=== PATIENT | female | born 1990 ===

== ENCOUNTER 2018-01-15 18:09 | Emergency (ER) | payer MEDICAID ==
[2018-01-15 18:23] VITALS: BMI 44.9
[2018-01-15 18:26] VITALS: BP 118/69; PULSE 89; RESP 18; TEMP 98.6; O2SAT 99
[2018-01-15 19:25] LABS: BASO % 0.8 % (0.0-2.0); EOS # 0.1 K/uL (0.0-0.7); EOS % 1.1 % (0.0-4.0); HEMOGLOBIN 11.9 g/dL (11.0-16.0); LYMPH # 1.5 K/uL (1.0-4.3); LYMPH % 26.3 % (20.0-40.0); MEAN CELL VOLUME 82.4 fL (81.0-99.0); MEAN CORPUSCULAR HEMOGLOBIN 27.5 pg (27.0-31.0); MEAN CORPUSCULAR HGB CONC 33.4 g/dL (33.0-37.0); MEAN PLATELET VOLUME 11.6 fL (7.2-11.7); MONO # 0.4 K/uL (0.0-0.8); MONO % 7.6 % (0.0-10.0); NEUT # 3.7 K/uL (1.8-7.0); NEUT % 64.2 % (50.0-75.0); NRBC % 0.1 % (0.0-2.0); RBC 4.31 Mil/uL (3.80-5.20); RED CELL DISTRIBUTION WIDTH 14.5 % (11.5-14.5); WHITE BLOOD COUNT 5.7 K/uL (4.8-10.8)
[2018-01-15 19:40] LABS: ALB/GLOB RATIO 1.3 (1.0-2.1); ALBUMIN 3.9 g/dL (3.5-5.0); ALT/SGPT 15 U/L (9-52); AST/SGOT 13 U/L (14-36); BLOOD UREA NITROGEN 11 mg/dL (7-17); CALCIUM 8.7 mg/dl (8.6-10.4); GFR AFRICAN-AMERICAN > 60; GFR NON-AFRICAN AMERICAN > 60
--- NOTE | 2018-01-15 20:20 | C.PDOC ---
History Of Present Illness 27 y/o female presents to ED with c/o dizziness, warm sensation to facial area and sore throat for 5 days. Patient states she took leftover antibiotics at home but is concern for dizziness described as lightheadedness. Patient denies headache, nausea, vomiting, SOB, palpitations or any other complaints at this time. Time Seen by Provider: 01/15/18 18:36 Chief Complaint (Nursing): ENT Problem History Per: Patient History/Exam Limitations: None Onset/Duration Of Symptoms: Days Current Symptoms Are (Timing): Still Present Past Medical History Reviewed: Historical Data, Nursing Documentation, Vital Signs Vital Signs: Last Vital Signs Temp 98.6 F 01/15/18 18:23 Pulse 89 01/15/18 18:23 Resp 18 01/15/18 18:23 BP 118/69 01/15/18 18:23 Pulse Ox 99 01/15/18 21:40 - Medical History PMH: Kidney Stones Surgical History: No Surg Hx - [facility] Procedures MONITORING NOS (08/22/13) LOW CERVICAL (09/02/13) Family History: States: No Known Family Hx - Social History Hx Alcohol Use: Yes Hx Substance Use: No Review Of Systems Constitutional: Negative for: Fever, Chills ENT: Positive for: Throat Pain Respiratory: Negative for: Cough, Shortness of Breath Gastrointestinal: Negative for: Nausea, Vomiting Neurological: Positive for: Dizziness. Negative for: Weakness, Numbness, Headache Physical Exam - Physical Exam Appears: Non-toxic, No Acute Distress Skin: Warm, Dry, No Rash Head: Atraumatic, Normacephalic Eye(s): bilateral: Normal Inspection (no nystagmus) Oral Mucosa: Moist Throat: No Drooling, Other (enlarged adenoids bilaterally) Neck: Supple Cardiovascular: Rhythm Regular Respiratory: Normal Breath Sounds, No Rales, No Rhonchi, No Wheezing Neurological/Psych: Oriented x3, Normal Speech, Normal Cognition, Normal Motor, Normal Sensation Gait: Steady ED Course And Treatment - Laboratory Results Result Diagrams: 01/15/18 19:21 01/15/18 19:21 Lab Interpretation: No Acute Changes Urine POC: Negative O2 Sat by Pulse Oximetry: 99 (RA) Pulse Ox Interpretation: Normal Progress Note: D/w patient symptoms most likely due to sinusitits, patient disagrees and insists for blood work to be done. Blood work ordered, results within normal limits. Patient discussed results, sitting in bed in NAD on her laptop, discharged and instructed follow up with PMD in 1-2 days. Disposition Counseled Patient/Family Regarding: Diagnosis, Need For Followup, Rx Given - Disposition Referrals: Robin Bradley [employer] [Outside] Disposition: HOME/ ROUTINE Disposition Time: 20:15 Condition: STABLE Additional Instructions: please follow up with PMD Increase PO fluids Take medications as directed Return to ER if worse Prescriptions: Cetirizine HCl [Zyrtec] 10 mg PO DAILY #20 capsule Mometasone Furoate [Nasonex] 2 spray NS DAILY #1 bottle Instructions: Sinusitis, Adult (DC) Forms: [employer] (Mosotho) - Clinical Impression Clinical Impression: Sinusitis - PA / [employer] [place] / Resident Statement MD/DO has reviewed & agrees with the documentation as recorded. - Scribe Statement The provider has reviewed the documentation as recorded by the Izabelaibcarrie Billings All medical record entries made by the Izabelaibcarrie were at my direction and personally dictated by me. I have reviewed the chart and agree that the record accurately reflects my personal performance of the history, physical exam, medical decision making, and the department course for this patient. I have also personally directed, reviewed, and agree with the discharge instructions and disposition.
== END 2018-01-15 21:05 | disposition home or self-care (01) ==
LOC: C.ER 18:09
DX: J32.9 Chronic sinusitis, unspecified (principal); Z87.891 Personal history of nicotine dependence